=== PATIENT | male | born 1960 | race Hispanic/Latino ===

== ENCOUNTER 2018-02-11 11:19 | Emergency (ER) | payer MEDICAID ==
[2018-02-11 11:23] VITALS: RESP 18; TEMP 98.3; O2SAT 100; BMI 24.1
--- NOTE | 2018-02-11 12:04 | ED PDOC ---
Arrival/HPI - General Chief Complaint: Back Pain Time Seen by Provider: 02/11/18 11:30 Historian: Patient - History of Present Illness Narrative History of Present Illness (Text): 02/11/18 11:57 57yo male with no pmhx who present with complaint of sharp lower back pain. Patient states hes started having the pain a week ago while lifting heavy object. The pain resolved 2days ago and then while bending at work he started having same pain. States pain is constant and worse with movement. Did not take any analgesia. Denies saddle anesthesia, focal weakness, urinary/fecal incontinence, abdominal pain, urinary symptoms, any other complaint. Past Medical History - Provider Review Nursing Documentation Reviewed: Yes - Infectious Disease Hx of Infectious Diseases: None - Reproductive Currently Lactating: No - Cardiac Hx Cardiac Disorders: No - Pulmonary Hx Respiratory Disorders: No - Neurological Hx Neurological Disorder: No - HEENT Hx HEENT Disorder: No - Endocrine/Metabolic Hx Endocrine Disorders: No - Hematological/Oncological Hx Blood Disorders: No - Musculoskeletal/Rheumatological Hx Musculoskeletal Disorders: No - Gastrointestinal Hx Gastrointestinal Disorders: No - Genitourinary/Gynecological Hx Genitourinary Disorders: No - Psychiatric Hx Depression: No Hx Emotional Abuse: No Hx Physical Abuse: No Hx Substance Use: No - Anesthesia Hx Anesthesia: No - Suicidal Assessment Feels Threatened In Home Enviroment: No Family/Social History - Physician Review Nursing Documentation Reviewed: Yes Family/Social History: Unknown Family HX Smoking Status: Current Some Days Smoker Hx Alcohol Use: No Hx Substance Use: No Hx Substance Use Treatment: No Allergies/Home Meds Allergies/Adverse Reactions: Allergies No Known Allergies Allergy (Verified 12/09/11 04:10) Review of Systems - Physician Review All systems were reviewed & negative as marked: Yes - Review of Systems Constitutional: Normal Eyes: Normal ENT: Normal Respiratory: Normal Cardiovascular: Normal Gastrointestinal: Normal Genitourinary Male: Normal Musculoskeletal: Back Pain Skin: Normal Neurological: Normal Endocrine: Normal Hemo/Lymphatic: Normal Psychiatric: Normal Physical Exam Vital Signs Reviewed: Yes Vital Signs Temp Pulse Resp BP Pulse Ox 02/11/18 13:30 69 18 113/74 100 02/11/18 11:29 98.3 F 73 18 111/70 100 02/11/18 11:23 98.3 F 73 18 111/70 100 Temperature: Afebrile Blood Pressure: Normal Pulse: Regular Respiratory Rate: Normal Appearance: Positive for: Well-Appearing, Non-Toxic, Comfortable Pain Distress: None Mental Status: Positive for: Alert and Oriented X 3 - Systems Exam Head: Present: Atraumatic, Normocephalic Pupils: Present: PERRL Extroacular Muscles: Present: EOMI Conjunctiva: Present: Normal Mouth: Present: Moist Mucous Membranes Neck: Present: Normal Range of Motion Respiratory/Chest: Present: Clear to Auscultation, Good Air Exchange. No: Respiratory Distress, Accessory Muscle Use Cardiovascular: Present: Regular Rate and Rhythm, Normal S1, S2. No: Murmurs Abdomen: No: Tenderness, Distention, Peritoneal Signs Back: No: Midline Tenderness, Paraspinal Tenderness, Pain with Leg Raise Upper Extremity: Present: Normal Inspection. No: Cyanosis, Edema Lower Extremity: Present: Normal Inspection. No: Edema Neurological: Present: GCS=15, CN II-XII Intact, Speech Normal Skin: Present: Warm, Dry, Normal Color. No: Rashes Psychiatric: Present: Alert, Oriented x 3, Normal Insight, Normal Concentration Medical Decision Making ED Course and Treatment: 02/11/18 19:40 Pt in ED for stated history. His pain was controlled in ED with medication. He was ambulatory and neurologically intact. LS xray - No acute finding. Result was DW the pt and she was DC home with Ibuprofen, flexeril and Lidocaine patch. He was referred to his PMD. TRT ED for any new or worsening symptoms - RAD Interpretation Radiology Orders: 02/11/18 11:33 LS SPINE WITH OBL > 18 YRS OLD [RAD] Stat - Medication Orders Current Medication Orders: Discontinued Medications Cyclobenzaprine HCl (Flexeril) 10 mg PO STAT STA Stop: 02/11/18 11:35 Last Admin: 02/11/18 11:45 Dose: 10 mg Dexamethasone (Decadron Inj) 10 mg IM STAT STA Stop: 02/11/18 12:36 Last Admin: 02/11/18 13:11 Dose: 10 mg IM Administration Charges Document 02/11/18 13:11 GALEN (Rec: 02/11/18 13:11 GALEN [id number]) Injection Site MAR Injection Site Left Gluteus Medius Charges for Administration # of IM Administrations 1 Ketorolac Tromethamine (Toradol) 60 mg IM STAT STA Stop: 02/11/18 11:35 Last Admin: 02/11/18 11:45 Dose: 60 mg JOSELITO Pain Assessment Document 02/11/18 11:45 JULIOMarissa (Rec: 02/11/18 11:46 GALEN MATHIS-PC) Pain Reassessment Is this a pain reassessment? No Sleep Is patient sleeping during reassessment? No Presence of Pain Presence of Pain Yes IM Administration Charges Document 02/11/18 11:45 GALEN (Rec: 02/11/18 11:46 GALEN MATHIS-PC) Charges for Administration # of IM Administrations 1 Re-Assess: JOSELITO Pain Assessment Document 02/11/18 12:45 JULIOMarissa (Rec: 02/11/18 13:28 GALEN MATHIS-PC) Pain Reassessment Is this a pain reassessment? Yes Sleep Is patient sleeping during reassessment? No Presence of Pain Presence of Pain Yes Pain Scale Used Pain Scale Used Numeric Description Description Intermittent Intensity of Pain at present 5 Disposition/Present on Arrival - Present on Arrival Any Indicators Present on Arrival: No History of DVT/PE: No History of Uncontrolled Diabetes: No Urinary Catheter: No History of Decub. Ulcer: No History Surgical Site Infection Following: None - Disposition Have Diagnosis and Disposition been Completed?: Yes Diagnosis: Back pain Disposition: HOME/ ROUTINE Disposition Time: 13:45 Condition: STABLE Discharge Instructions (ExitCare): Low Back Pain (DC) Additional Instructions: Take medication and apply warm compress/shower to area Follow up with your Doctor Return to ED for any new or worsening symptoms Prescriptions: Cyclobenzaprine [Cyclobenzaprine HCl] 10 mg PO TID #12 tab Ibuprofen [Motrin Tab] 600 mg PO Q6 #20 tab Lidocaine 5% [Lidoderm] 1 patch TP BID #10 patch Referrals: Jena Brunner MD [Primary Care Provider] - Follow up with primary Forms: [employer] (Syrian)
--- NOTE | 2018-02-11 12:22 | RAD ---
Date of service: 02/11/2018 PROCEDURE: Radiographs of the Lumbar Spine. HISTORY: back pain COMPARISON: No prior. FINDINGS: BONES: Normal alignment. No listhesis. No fracture. DISC SPACES: Unremarkable. OTHER FINDINGS: None. IMPRESSION: Unremarkable radiographs of the lumbar spine.
[2018-02-11 13:54] VITALS: BP 113/74; PULSE 69
== END 2018-02-11 14:10 | disposition home or self-care (01) ==
LOC: ED 11:19
DX: M54.5 Low back pain (principal)
CPT/HCPCS: 72110; 96372; 99283; J1100; J1885

== ENCOUNTER 2018-07-01 14:53 | Outpatient (CLI) | payer MEDICAID | END 2018-07-01 14:54 | disposition home or self-care (01) | LOC: RAD 14:53 ==

== ENCOUNTER 2018-07-05 09:51 | Outpatient (CLI) | payer MEDICAID | END 2018-07-05 09:52 | disposition home or self-care (01) | LOC: RAD 09:51 ==

== ENCOUNTER 2018-07-08 08:13 | Outpatient (CLI) | payer MEDICAID | END 2018-07-08 08:14 | disposition home or self-care (01) | LOC: RAD 08:13 ==

== ENCOUNTER 2018-07-08 09:24 | Emergency (ER) | payer MEDICAID ==
[2018-07-08 09:47] VITALS: BMI 24.5
[2018-07-08 09:56] VITALS: O2SAT 100
--- NOTE | 2018-07-08 10:07 | ED PDOC ---
Arrival/HPI - General Chief Complaint: Shortness Of Breath Time Seen by Provider: 07/08/18 09:28 Historian: Patient - History of Present Illness Narrative History of Present Illness (Text): 07/08/18 10:07 A 58 year old male, with no significant past medical history, presents to the emergency department complaining of shortness of breath for approximately 1 week. Patient reports experiencing pleuritic chest pain as well when taking in deep breaths. States he had a Chest X-ray and Lower Extremity Ultrasound last [place] [facility] [place] at [facility], and Echocardiogram and Neck Vein Ultrasound at [facility]. He explains he was getting physical exam, blood work, and imaging performed to receive clearance to have cataract surgery performed. Also, he mentions having Chest CT performed as per his request because he is a smoker. He mentions also last week, he told by his doctor he has high cholesterol (within 300 range), and was given medication. Prior to taking medication, patient felt normal, even during check-ups. However, day after first taking the medication, began experiencing shortness of breath and pleuritic chest pain. Patient denies any fever, cough, any cold-like symptoms, or any other complaints at this time. PMD: Dr. Hardeep Cabezas Past Medical History - Provider Review Nursing Documentation Reviewed: Yes - Infectious Disease Hx of Infectious Diseases: None - Reproductive Currently Lactating: No - Cardiac Hx Cardiac Disorders: Yes - Pulmonary Hx Respiratory Disorders: No - Neurological Hx Neurological Disorder: No - HEENT Hx HEENT Disorder: No - Endocrine/Metabolic Hx Endocrine Disorders: No - Hematological/Oncological Hx Blood Disorders: No - Musculoskeletal/Rheumatological Hx Musculoskeletal Disorders: No - Gastrointestinal Hx Gastrointestinal Disorders: No - Genitourinary/Gynecological Hx Genitourinary Disorders: No - Psychiatric Hx Depression: No Hx Emotional Abuse: No Hx Physical Abuse: No Hx Substance Use: No - Surgical History Hx Appendectomy: Yes - Anesthesia Hx Anesthesia: Yes Hx Anesthesia Reactions: No Hx Malignant Hyperthermia: No - Suicidal Assessment Feels Threatened In Home Enviroment: No Family/Social History - Physician Review Nursing Documentation Reviewed: Yes Family/Social History: No Known Family HX Smoking Status: Current Some Days Smoker Hx Alcohol Use: No Hx Substance Use: No Hx Substance Use Treatment: No Allergies/Home Meds Allergies/Adverse Reactions: Allergies No Known Allergies Allergy (Verified 07/08/18 09:56) Home Medications: Home Meds Medication Instructions Recorded Confirmed Pravastatin Sodium [Pravachol] 20 mg PO DAILY 07/08/18 07/08/18 Review of Systems - Physician Review All systems were reviewed & negative as marked: Yes - Review of Systems Constitutional: absent: Fevers Respiratory: SOB. absent: Cough Cardiovascular: Chest Pain (pleuritic) Physical Exam - Physical Exam Narrative Physical Exam (Text): Gen: VS reviewed, alert, well developed, well nourished, nontoxic, mild distress, patient intermittently gasping for air. ENT: normal pharynx. Eye: EOMI, PERRL. Neck: no JVD, supple, no adenopathy. CV: regular rate, regular rhythm, no rubs, no murmur, no gallops, S1, S2, pulses equal and strong. Pulm: no distress, clear to auscultation, no wheeze, no rhonchi, breath sounds equal, no rales. Abd: soft, nontender, no guarding, no rebound, no rigidity, normal bowel sounds. Ext: no edema. Skin: good color, no rash, no cyanosis. Psych: responds appropriately to questions, normal affect. Neuro: oriented x 3, CN2-12 intact grossly, motor intact, sensation intact. Vital Signs Reviewed: Yes Vital Signs Temp Pulse Resp BP Pulse Ox 07/08/18 09:47 97.6 F 65 18 125/88 100 Temperature: Afebrile Blood Pressure: Normal Pulse: Regular Respiratory Rate: Normal Appearance: Positive for: Well-Appearing, Non-Toxic, Comfortable Pain Distress: None Mental Status: Positive for: Alert and Oriented X 3 Medical Decision Making ED Course and Treatment: 07/08/18 10:08 Impression: 58 year old male with shortness of breath and pleuritic chest pain (when taking deep breaths) Plan: -- EKG -- Chest X-ray -- Labs -- Reassess and disposition Prior Visits: Notes and results from previous visits were reviewed. Patient was last seen here in the emergency department on 02/11/2018 for sharp lower back pain. Patient was discharged home. Progress Notes: - EKG Interpretation EKG Interpretation (Text): 07/08/18 10:39 0935: nsr at 64 bpm, nml qrs, nml axis, no acute sttw abn Interpreted by ED Physician: Yes - Scribe Statement The provider has reviewed the documentation as recorded by the Baldomero Sterling Provider Scribe Attestation: All medical record entries made by the Evaibe were at my direction and personally dictated by me. I have reviewed the chart and agree that the record accurately reflects my personal performance of the history, physical exam, medical decision making, and the department course for this patient. I have also personally directed, reviewed, and agree with the discharge instructions and disposition. Disposition/Present on Arrival - Present on Arrival Any Indicators Present on Arrival: No History of DVT/PE: No History of Uncontrolled Diabetes: No Urinary Catheter: No History of Decub. Ulcer: No History Surgical Site Infection Following: None - Disposition Have Diagnosis and Disposition been Completed?: Yes Diagnosis: Dyspnea Disposition: HOME/ ROUTINE Disposition Time: 20:37 Patient Plan: Discharge Condition: STABLE Discharge Instructions (ExitCare): Shortness of Breath (Dyspnea) (DC) Additional Instructions: return for any new or worsening symptoms. follow up with your doctor to discuss getting tested for emphysema. Referrals: Hardeep Cabezas MD [Primary Care Provider] - Follow up with primary Forms: [employer] (Urdu)
[2018-07-08 10:18] LABS: BASO # 0.04 K/mm3 (0.0-2.0); BASO % 0.4 % (0.0-3.0); EOS # 0.3 (0.0-0.7); EOS % 2.8 % (1.5-5.0); GRAN # 5.41 (1.4-6.5); GRAN % 58.3 % (50.0-68.0); HEMOGLOBIN 14.7 g/dL (14.0-18.0); LYMPH # 2.8 (1.2-3.4); LYMPH % 30.2 % (22.0-35.0); MEAN CELL VOLUME 88.5 fl (80.0-105.0); MEAN CORPUSCULAR HEMOGLOBIN 30.3 pg (25.0-35.0); MEAN CORPUSCULAR HGB CONC 34.3 g/dl (31.0-37.0); MEAN PLATELET VOLUME 9.5 fl (7.0-11.0); MONO # 0.8 (0.1-0.6); MONO % 8.3 % (1.0-6.0); RBC 4.85 10^6/uL (3.5-6.1); RED CELL DISTRIBUTION WIDTH 13.2 % (11.5-14.5); WHITE BLOOD COUNT 9.3 10^3/uL (4.5-11.0)
[2018-07-08 10:27] LABS: INR 0.93; PROTHROMBIN TIME 10.7 SECONDS (9.4-12.5)
[2018-07-08 10:28] LABS: PARTIAL THROMBOPLASTIN TIME 29.7 Seconds (25.1-36.5)
[2018-07-08 10:43] LABS: B-TYPE NATRIURETIC PEPTIDE 54.1 pg/mL (0-450); TROPONIN I < 0.01 ng/mL
--- NOTE | 2018-07-08 13:06 | RAD ---
Date of service: 07/08/2018 HISTORY: chest pain COMPARISON: 07/01/2018 FINDINGS: LUNGS: No active pulmonary disease. PLEURA: No significant pleural effusion identified, no pneumothorax apparent. CARDIOVASCULAR: No aortic atherosclerotic calcification present. Normal cardiac size. Mild vascular congestion OSSEOUS STRUCTURES: No significant abnormalities. VISUALIZED UPPER ABDOMEN: Normal. OTHER FINDINGS: None. IMPRESSION: No active disease.
[2018-07-08 13:40] VITALS: RESP 20
[2018-07-08 13:41] VITALS: BP 136/84; PULSE 84; TEMP 97.8
--- NOTE | 2018-07-09 11:13 | CARD ---
APPROVED REPORT Date of service: 07/08/2018 EKG Measurement Heart [id number] <Conclusion> Normal sinus rhythm Normal ECG
== END 2018-07-08 13:41 | disposition home or self-care (01) ==
LOC: ED 09:24
DX: R06.00 Dyspnea, unspecified (principal)

== ENCOUNTER 2018-07-24 08:32 | Outpatient (CLI) | payer MEDICAID | END 2018-07-24 08:33 | disposition home or self-care (01) | LOC: RAD 08:32 | DX: R13.10 Dysphagia, unspecified (principal) ==